=== PATIENT | female | born 1965 | race Caucasian/White ===

== ENCOUNTER 2023-04-30 13:27 | Observation (INO) ==
[2023-04-30] MEDS ORDERED: IOPAMIDOL 100 ML BOTTLE IV ONE ×2 (13:28)
[2023-04-30] MEDS: ONDANSETRON 4 MG/2 ML VIAL IV ONE ×3 (14:28→18:42)
[2023-04-30] MEDS: 0.9 % SODIUM CHLORIDE 1,000 ML IV ONE (14:28)
[2023-04-30] MEDS: HYDROmorphone 1 MG/ML SYRINGE IV ONE ×2 (14:30→18:02)
[2023-04-30 14:50] LABS: Basophils # (Auto) 0.03 K/mcL (0.00-0.30); Basophils % (Auto) 0.2 % (0.0-2.0); Eosinophils # (Auto) 0.04 K/mcL (0.00-0.70); Eosinophils % (Auto) 0.3 % (0.0-7.0); Hematocrit 37.9 % (34.1-44.9); Hemoglobin 12.8 g/dL (11.2-15.7); Lymphocytes # (Auto) 1.64 K/mcL (1.50-4.80); Lymphocytes % (Auto) 12.2 % (15.5-49.0); Mean Cell Volume 88.1 fL (80.0-100.0); Mean Corpuscular HGB Conc 33.8 g/dL (31.0-36.0); Mean Platelet Volume 9.7 fL (8.8-12.5); Monocytes # (Auto) 0.72 K/mcL (0.10-0.90); Monocytes % (Auto) 5.4 % (1.0-12.0); Neutrophils % (Auto) 81.8 % (38.0-78.0); Platelet Count 283 K/mcL (140-440); Red Cell Distribution Width 11.8 % (11.5-14.5); WBC 13.4 K/mcL (4.5-11.0)
[2023-04-30 14:57] LABS: Appearance,Urine Clear (Clear); Bacteria,Urine Few /hpf (0); Bilirubin,Urine Negative (Negative); Color,Urine Yellow; Culture Indicated,Urine Yes; Glucose,Urine (UA) Negative (Negative); Ketones,Urine Trace mg/dL (Negative); Leukocyte Esterase,Urine Small /uL (Negative); Mucus,Urine Few /hpf; Nitrate,Urine Negative (Negative); PH,Urine 5.5 (5.0-9.0); Protein,Urine Negative (Negative); Specific Gravity,Urine <= 1.005 (1.000-1.035); Urine Blood Negative ery/mcL (Negative); Urine RBC 1 /hpf (0-3); Urine Squamous Epithelial Cell 1 /hpf (0-4); Urine Transitional Epi Cells 2 /hpf (0-2); Urine WBC 6 /hpf (0-4); Urobilinogen,Urine Normal
[2023-04-30 15:19] LABS: ALT/SGPT 16 U/L (<40); AST/SGOT 23 U/L (<32); Albumin 4.3 gm/dL (3.2-5.2); Albumin/Globulin Ratio 1.3 (1.0-2.3); Alkaline Phosphatase 100 U/L (39-117); Bilirubin,Total 0.3 mg/dL (0.1-1.0); Blood Urea Nitrogen 9 mg/dL (6-20); Calcium 9.5 mg/dL (8.6-10.4); Carbon Dioxide 22 mmol/L (22-30); Chloride 98 mmol/L (96-108); Globulin 3.4 gm/dL (2.2-3.7); Glomerular Filtration Rate 82; Glucose 98 mg/dL (70-105)
[2023-04-30] MEDS: PIPERACILLIN SODIUM/TAZOBACTAM 3.375 GM in DEXTROSE 5% IN WATER 50 ML IV ONE (16:29)
[2023-04-30] MEDS: CIPROFLOXACIN 400 MG/200 ML BAG IV ONE (18:44)
[2023-04-30] MEDS: HYDROmorphone 0.5 MG/0.5 ML SYRINGE IV PRN (19:40)
[2023-04-30] MEDS: DEXTROSE 5%-1/2NS W/20MEQ KCL 1,000 ML IV SCH (19:40)
[2023-04-30] MEDS: PROMETHAZINE 25 MG/ML VIAL IV PRN (20:31)
[2023-04-30] MEDS: PANTOPRAZOLE 40 MG VIAL IV ONE (20:31)
[2023-04-30] MEDS: ZOLPIDEM 5 MG TABLET PO PRN (20:31)
[2023-04-30] MEDS: CALCIUM CARBONATE 500 MG TAB.CHEW CHEWED ONE (20:31)
[2023-04-30] MEDS: PIPERACILLIN SODIUM/TAZOBACTAM 3.375 GM in DEXTROSE 5% IN WATER 100 ML IV SCH ×2 (21:26→21:45)
[2023-05-01] MEDS ORDERED: diphenhydrAMINE 50 MG/ML VIAL IV PRN ×2 (00:09→11:03)
[2023-05-01] MEDS ORDERED: IPRATROPIUM/ALBUTEROL 3 ML AMPUL.NEB NEB PRN ×2 (05:00→11:03)
[2023-05-01] MEDS ORDERED: SCOPOLAMINE 1 PATCH PATCH TOPICAL PRN (05:00)
[2023-05-01 06:42] LABS: Hematocrit 34.9 % (34.1-44.9); Hemoglobin 11.4 g/dL (11.2-15.7); Mean Cell Volume 89.9 fL (80.0-100.0); Mean Corpuscular HGB Conc 32.7 g/dL (31.0-36.0); Platelet Count 257 K/mcL (140-440); RBC 3.88 M/mcL (3.59-5.38); WBC 8.6 K/mcL (4.5-11.0)
[2023-05-01 07:25] LABS: Blood Urea Nitrogen 6 mg/dL (6-20); Carbon Dioxide 27 mmol/L (22-30); Chloride 101 mmol/L (96-108); Glomerular Filtration Rate 82; Glucose 93 mg/dL (70-105)
[2023-05-01] MEDS: CIPROFLOXACIN 400 MG/200 ML BAG IV ONE (08:47)
[2023-05-01] MEDS ORDERED: KETAMINE 50 MG/ML Syringe IV ONE (09:29)
[2023-05-01] MEDS ORDERED: ONDANSETRON 4 MG/2 ML VIAL ONE (09:29)
[2023-05-01] MEDS ORDERED: PROPOFOL 200 MG/20 ML VIAL IV ONE (09:29)
[2023-05-01] MEDS ORDERED: fentaNYL 100 MCG/2 ML VIAL ONE (09:29)
[2023-05-01] MEDS ORDERED: MAGNESIUM SULFATE 2 GM/50 ML BAG IV ONE (09:29)
[2023-05-01] MEDS ORDERED: DEXAMETHASONE 10 MG/ML VIAL ONE (09:29)
[2023-05-01] MEDS ORDERED: LIDOCAINE 2% PF 5 ML VIAL ONE (09:29)
[2023-05-01] MEDS ORDERED: ROCURONIUM 10 MG/ML ML IV ONE (09:29)
[2023-05-01] MEDS: BUPIVACAINE W/EPI 0.5% 50 ML VIAL IJ ONE (10:16)
[2023-05-01] MEDS ORDERED: ePHEDrine 50 MG/5 ML SYRINGE (ANEST) IV ONE (10:25)
[2023-05-01] MEDS ORDERED: PROMETHAZINE 25 MG/ML VIAL IV PRN (11:03)
[2023-05-01] MEDS ORDERED: NALOXONE HCL 0.4 MG/ML VIAL IV PRN (11:03)
[2023-05-01] MEDS ORDERED: fentaNYL 100 MCG/2 ML VIAL IV PRN (11:03)
[2023-05-01] MEDS ORDERED: KETOROLAC 30 MG/ML VIAL IV PRN (11:03)
[2023-05-01] MEDS ORDERED: LACTATED RINGERS 250 ML IV PRN (11:03)
[2023-05-01] MEDS ORDERED: MEPERIDINE 25 MG/ML VIAL IV PRN (11:03)
[2023-05-01] MEDS ORDERED: SUGAMMADEX SODIUM 200 MG/2 ML VIAL IV ONE (11:04)
[2023-05-01] MEDS: ONDANSETRON 4 MG/2 ML VIAL IV PRN (12:10)
[2023-05-01] MEDS: ACETAMINOPHEN 650 MG/65 ML BAG IV SCH (13:39)
[2023-05-01] MEDS ORDERED: CALCIUM CARBONATE 500 MG TAB.CHEW CHEWED PRN (17:16)
[2023-05-01] MEDS: oxyCODONE IR 5 MG TABLET PO PRN (17:35)
[2023-05-02 06:37] LABS: Hematocrit 31.7 % (34.1-44.9); Hemoglobin 10.4 g/dL (11.2-15.7); Mean Cell Volume 91.4 fL (80.0-100.0); Mean Corpuscular HGB Conc 32.8 g/dL (31.0-36.0); Mean Platelet Volume 10.1 fL (8.8-12.5); Platelet Count 239 K/mcL (140-440); RBC 3.47 M/mcL (3.59-5.38); Red Cell Distribution Width 11.9 % (11.5-14.5); WBC 11.3 K/mcL (4.5-11.0)
[2023-05-02] MEDS: LACTATED RINGERS 1,000 ML IV SCH (06:41)
[2023-05-02 07:04] LABS: Blood Urea Nitrogen 6 mg/dL (6-20); Calcium 8.9 mg/dL (8.6-10.4); Carbon Dioxide 25 mmol/L (22-30); Chloride 105 mmol/L (96-108); Glomerular Filtration Rate 96; Glucose 149 mg/dL (70-105)
[2023-05-02] MEDS: PANTOPRAZOLE 40 MG TABLET PO SCH (08:49)
== END 2023-05-02 10:30 | disposition home or self-care (01) ==
LOC: ED 13:27 → MEDSUR 13:27
PROVIDERS: ADMIT Surgery Surgical Critical Care; ATTEND Surgery Surgical Critical Care
PROC: LAPAPPY (ICD-10-PCS; 2023-05-01 10:14)